=== PATIENT | male | born 1970 | race Two or more races ===

== ENCOUNTER 2021-11-25 10:43 | Emergency (ER) | payer OTHER ==
[~2021-11-25] VITALS: Ht 175.3 cm; Wt 69.9 kg
[2021-11-25] MEDS ORDERED: B12 ACTIVE1000 MCG PO (11:46)
[2021-11-25] MEDS ORDERED: ENALAPRIL MALEA10 MG NGT (11:46)
[2021-11-25] MEDS ORDERED: NABUMETONE750 MG PO (12:26)
[2021-11-25] MEDS ORDERED: IBU800 MG PO (12:26)
== END 2021-11-25 13:30 | disposition home or self-care (01) ==
LOC: ER 10:43
DX: M54.50 Low back pain, unspecified (principal); I10 Essential (primary) hypertension